=== PATIENT | male | born 1965 | race Caucasian/White ===

== ENCOUNTER 2018-06-11 10:43 | Outpatient (CLI) | payer MEDICAID, SELFPAY ==
[2018-06-11 12:16] LABS: Microalb ug/mg Crea 5.9 ug/mg Cr
[2018-06-11 12:17] LABS: ALT 28 U/L (12-78); AST 25 U/L (15-37); Albumin 3.6 g/dL (3.4-5.0); Alkaline Phosphatase 98 U/L (46-116); Anion Gap 11.2 mmol/L (3-11); BUN 14 mg/dL (7-18); Bilirubin, Total 0.7 mg/dL (0.2-1.0); CO2 25.8 mmol/L (21.0-32.0); CREATININE 0.92 mg/dL (0.70-1.30); Calcium 8.9 mg/dL (8.5-10.1); Chloride 103 mmol/L (98-107); Cholesterol 287 mg/dL (50-200); Glucose 134 mg/dL (70-100); HDL Cholesterol 33 mg/dL (40-60); LDL CHOLESTEROL 219 mg/dL (<100); Potassium 4.3 mmol/L (3.5-5.1); Sodium 140 mmol/L (136-145); Total Protein 6.7 g/dL (6.4-8.2); Triglyceride 154 mg/dL (30-150)
== END 2018-06-11 11:03 ==
PROVIDERS: PCP Family Medicine; Visit Provider Physician Assistant Medical
DX: E78.4 Other hyperlipidemia (principal); E11.9 Type 2 diabetes mellitus without complications; I10 Essential (primary) hypertension
CPT/HCPCS: 36415; 80053; 80061; 83721; 82043; 82570; 83036

== ENCOUNTER 2018-09-23 09:53 | Outpatient (CLI) | payer OTHER, SELFPAY ==
[2018-09-23 10:40] LABS: Hemoglobin A1C 6.1 % (4.5-6.2)
[2018-09-23 11:41] LABS: ALT 25 U/L (12-78); AST 17 U/L (15-37); Albumin 3.5 g/dL (3.4-5.0); Alkaline Phosphatase 126 U/L (46-116); Anion Gap 6.9 mmol/L (3-11); BUN 17 mg/dL (7-18); Bilirubin, Total 0.5 mg/dL (0.2-1.0); CO2 26.1 mmol/L (21.0-32.0); CREATININE 1.01 mg/dL (0.70-1.30); Chloride 104 mmol/L (98-107); Cholesterol 265 mg/dL (50-200); Glucose 123 mg/dL (70-100); HDL Cholesterol 45 mg/dL (40-60); LDL CHOLESTEROL 201 mg/dL (<100); Potassium 4.5 mmol/L (3.5-5.1); Sodium 137 mmol/L (136-145); Total Protein 6.7 g/dL (6.4-8.2); Triglyceride 134 mg/dL (30-150)
== END 2018-09-23 10:13 ==
PROVIDERS: PCP Family Medicine; Visit Provider Physician Assistant Medical
DX: E78.49 Other hyperlipidemia (principal); I10 Essential (primary) hypertension; E11.9 Type 2 diabetes mellitus without complications
CPT/HCPCS: 36415; 80053; 80061; 83721; 83036

== ENCOUNTER 2021-12-20 04:16 | Outpatient (CLI) | payer OTHER, SELFPAY ==
[2021-12-20 08:23] LABS: ALT 46 U/L (16-63); AST 30 U/L (15-37); Albumin 3.4 g/dL (3.4-5.0); Alkaline Phosphatase 99 U/L (46-116); Anion Gap 7.2 mmol/L (3-11); BUN 13 mg/dL (7-18); Bilirubin, Total 0.7 mg/dL (0.2-1.0); CO2 27.8 mmol/L (21.0-32.0); CREATININE 0.9 mg/dL (0.70-1.30); Calcium 8.2 mg/dL (8.5-10.1); Calculated LDL 168 mg/dL (<100); Chloride 103 mmol/L (98-107); Cholesterol 260 mg/dL (<200); Glucose 142 mg/dL (74-106); HDL Cholesterol 34 mg/dL (40-60); Potassium 4.6 mmol/L (3.5-5.1); Sodium 138 mmol/L (136-145); Total Protein 6.5 g/dL (6.4-8.2); Triglyceride 294 mg/dL (<150)
== END 2021-12-20 04:17 | disposition home or self-care (01) ==
LOC: LBO 04:17
PROVIDERS: PCP Family Medicine; Visit Provider Family Medicine
DX: E11.9 Type 2 diabetes mellitus without complications (principal); E78.5 Hyperlipidemia, unspecified
CPT/HCPCS: 36415; 80053; 80061

== ENCOUNTER 2023-02-02 01:30 | Outpatient (CLI) | payer OTHER, SELFPAY ==
--- NOTE | 2023-02-02 07:15 | DI.RAD_ITS ---
Exam(s) XR SHOULDER LT COMPLETE 2+V EXAM: XR SHOULDER LT COMPLETE 2+V CLINICAL HISTORY: Chronic lt shoulder pain, ? arthritis, m25.512. TECHNIQUE: 2D digital imaging was performed of the left shoulder. Six images were obtained. AP, Gr ashey, Y-view and axillary views were obtained. COMPARISON: No exams were available for comparison FINDINGS: BONES: No acute fracture is present. No bony destructive lesion is seen. JOINTS: No dislocation present. There are degenerative changes seen at the glenohumeral joint charact erized by joint space narrowing and periarticular spurring in the humeral head. The acromioclavicula r joint is well maintained. SOFT TISSUE: Normal. IMPRESSION: Degenerative changes seen at the glenohumeral joint. DATA REPOSITORY: RADIATION DOSE DELIVERED:
== END 2023-02-02 01:50 ==
LOC: DI 01:30
PROVIDERS: PCP Family Medicine; Visit Provider Family Medicine
DX: M19.012 Primary osteoarthritis, left shoulder (principal)
CPT/HCPCS: 73030

== ENCOUNTER 2023-04-19 02:51 | Outpatient (CLI) | payer OTHER, SELFPAY ==
--- NOTE | 2023-04-19 08:00 | DI.MRI_ITS ---
Exam(s) MR UPPER JOINT LT WO EXAM: MR UPPER JOINT LT WO CLINICAL HISTORY: L SHOULDER PAIN, lt rotator cuff tear, M75.102. TECHNIQUE: Multiplanar multisequence MRI was performed. COMPARISON: None. FINDINGS: BONES: There is no fracture or contusion pattern. There are degenerative changes in the posterior inf erior glenoid. Degenerative cysts are noted near the greater tuberosity. JOINTS:The acromioclavicular joint shows some inferior spurring and small amount of fluid. The gleno humeral joint is normal. TENDONS: Supraspinatus: Unremarkable. Infraspinatus: Unremarkable. Subscapularis: Unremarkable. Teres Minor: Unremarkable. Biceps and Mousie: Biceps tendon and anchor appear intact. There is fluid in the biceps tendon sheat h and 2 small loose bodies within the fluid at the level of the upper humeral shaft. MUSCLES: Unremarkable. GLENOID LABRUM: Tear of the anterior superior labrum versus prominent sulcus.. SOFT TISSUES: Unremarkable. OTHER: Subacromial and subdeltoid bursae show no fluid. Minimal fluid in the subcoracoid bursa.. IMPRESSION: Tear of the anterior superior labrum versus a prominent sulcus. Biceps tenosynovitis with 2 small loose bodies. No rotator cuff tear. Degenerative changes of the posterior inferior glenoid. DATA REPOSITORY:
== END 2023-04-19 03:11 ==
LOC: DI 02:51
PROVIDERS: PCP Family Medicine; Visit Provider Student in an Organized Health Care Education/Training Program
DX: S43.431A Superior glenoid labrum lesion of right shoulder, initial encounter; X58.XXXA Exposure to other specified factors, initial encounter
CPT/HCPCS: 73221

== ENCOUNTER → 2023-05-03 02:26 | Outpatient (CLI) | payer OTHER, SELFPAY ==
--- NOTE | 2023-05-03 08:15 | DI.RAD_ITS ---
Exam(s) RF JOINT INJECTION FLUORO GUID EXAM: RF JOINT INJECTION FLUORO GUID CLINICAL HISTORY: L SHOULDER INJ UNDER FLUORO,arthritis, m19.012 TECHNIQUE: Fluoroscopic guided left shoulder steroid injection therapy CONTRAST MATERIAL: Intra-articular COMPARISON: Relevant prior exams reviewed FINDINGS: Patient was consented prior to this procedure. Using sterile technique and adequate skin-subcutaneous anesthesia, fluoroscopic guidance was used to advance a 22 gauge spinal needle into the glenohumeral joint via an anterior approach. Intraarticula r position was confirmed with intra-articular contrast injection. Thereafter a sterile solution of 80 milligrams Depo-Medrol and 3 cc bipivocaine was injected into the joint space. Patient tolerated the procedure well and there were no intra procedure complications Cumulative Dose: Ka,r=3.19 mGy IMPRESSION: Left glenohumeral joint therapeutic steroid injection using fluoroscopic guidance. RADIATION DOSE DELIVERED:
[2023-05-03] MEDS: methylPREDNISolone ACETATE 80 MG/ML VIAL IM (15:04)
[2023-05-03] MEDS: Bupivacaine 0.5% Pres-Free 10 ML VIAL 5 ML IJ (15:05)
[2023-05-03] MEDS: Omnipaque 300 MG/ML 10 ML BTL IJ (15:05)
== END ==
PROVIDERS: PCP Family Medicine; Visit Provider Student in an Organized Health Care Education/Training Program
DX: M19.012 Primary osteoarthritis, left shoulder (principal)
CPT/HCPCS: 20610; 77002; J1040

== ENCOUNTER 2023-07-09 01:26 | Outpatient (CLI) | payer OTHER, SELFPAY ==
--- NOTE | 2023-07-09 06:45 | DI.RAD_ITS ---
Exam(s) XR KNEE RT 3V AP,LAT,BOGDAN EXAM: XR KNEE RT 3V AP,LAT,BOGDAN CLINICAL HISTORY: assess bony alignment,rt knee pain, m25.561. TECHNIQUE: 2D digital imaging was performed. COMPARISON: No exams were available for comparison FINDINGS: 3 views No evidence of acute fracture nor joint effusion. Bone density normal. No osseous lesions. No join t space narrowing. No osteophytes. IMPRESSION: No significant osseous findings. DATA REPOSITORY: RADIATION DOSE DELIVERED:
== END 2023-07-09 01:46 ==
LOC: DI 01:26
PROVIDERS: PCP Family Medicine; Visit Provider Nurse Practitioner Adult Health
DX: M25.561 Pain in right knee (principal)
CPT/HCPCS: 73562

== ENCOUNTER → 2023-08-08 01:56 | Outpatient (CLI) | payer OTHER, SELFPAY ==
--- NOTE | 2023-08-08 08:15 | DI.MRI_ITS ---
Exam(s) MR BRAIN WO EXAM: MR BRAIN WO CLINICAL HISTORY: acute R knee numbness; ?stroke,R20.0 TECHNIQUE: Multiplanar multisequence MRI of the brain was performed. COMPARISON: No exams were available for comparison FINDINGS: VENTRICLES AND EXTRA AXIAL SPACES: Normal in size and morphology for the patient's age. MIDLINE SHIFT: None. CEREBRAL PARENCHYMA: No focus of restricted diffusion to suggest acute infarct. No space-occupying le ju identified. No significant atrophy. No abnormal high signal lesions in the white matter. HEMORRHAGE: None. BRAINSTEM/CEREBELLUM: Normal. VISUALIZED PARANASAL SINUSES/MASTOIDS:Opacification of the right maxillary sinus. Vasculature: Normal flow void. PITUITARY GLAND: Unremarkable. ORBITS: Unremarkable. IMPRESSION: Unremarkable MRI of the brain. Opacification of the right maxillary sinus. DATA REPOSITORY:
== END ==
PROVIDERS: PCP Family Medicine; Visit Provider Psychiatry & Neurology Neurology
DX: R20.0 Anesthesia of skin (principal)
CPT/HCPCS: 70551

== ENCOUNTER 2024-11-23 11:24 | Emergency (ER) | payer OTHER, SELFPAY ==
[2024-11-23 11:27] VITALS: BP 178/87; PULSE 82; RESP 18; TEMP 36.6; O2SAT 98
--- NOTE | 2024-11-23 11:45 | RT.EKG_ITS ---
APPROVED REPORT Exam: Resting ECG Reason for Exam: Chest Pain Patient Location: E HR:70 bpm ECG Measurements Heart Rate 70 AXIS WV 180 P 11 QRSd 89 QRS -22 QT 370 T 4 QTc 400 Conclusion Sinus rhythm, rate 70 No interval abnormalities No STEMI Q wave and T wave inversion lead III No priors available for comparison
--- NOTE | 2024-11-23 11:45 | DI.CT_ITS ---
Exam(s) CT ABDOMEN PELVIS W EXAM: CT ABDOMEN PELVIS W CLINICAL HISTORY: epigastric pain. TECHNIQUE: Imaging Protocol: Axial computed tomography images with coronal and sagittal reformatted images were created and reviewed CONTRAST MATERIAL: Intravenous: Omnipaque-350 100cc Oral: None COMPARISON: No exams were available for comparison FINDINGS: VISUALIZED LUNG BASES: No nodules nor pleural effusions evident. Visualized lower mediastinum appear s unremarkable. There is no hiatal hernia evident. ABDOMEN: There is no ascites. There is no free intraperitoneal air. LIVER: Mildly hypodense implying steatosis but there are no discrete focal hepatic lesions. No dilat ed intrahepatic ducts. GALLBLADDER/BILIARY: No obvious acute gallbladder pathology. No radiopaque calculi evident. No gall bladder distension. CBD is not dilated. PANCREAS: No evidence of pancreatic mass nor dilatation of the pancreatic duct. No obvious evidence pancreatitis. SPLEEN: Spleen is not enlarged. No obvious intrasplenic lesions. Splenic and portal veins are paten t. ADRENALS: There are no significant adrenal masses. KIDNEYS:No cysts evident. No solid renal masses. No calculi nor hydronephrosis.. ABDOMINAL AORTA: Calcified but not enlarged. Celiac and superior mesenteric arteries are patent with no significant stenosis. Inferior mesenteric artery is also patent. No aneurysms evident in the ab dominal aorta LYMPH NODES:There is no retroperitoneal nor paraaortic adenopathy. ABDOMINAL WALL: No evidence of significant anterior abdominal wall nor inguinal hernia. GI: Stomach is not distended. No perigastric streaking. However, the mid-distal aspect of the duode num is fluid-filled and slightly dilated as is the duodenum at and slightly distal to the ligament of Treitz. However, left upper quadrant jejunal loops appear unremarkable and there is no evidence of small-bowel obstruction. The right-side of the colon and transverse colon are fluid-filled but without an obvious colitis danielle helio. Distal half of the colon appears unremarkable. PELVIS: GI: No evidence of appendicitis.There is no significant sigmoid diverticular disease. LYMPH NODES: There is no intrapelvic nor inguinal adenopathy. REPRODUCTIVE: There is some calcifications in the nonenlarged prostate. Seminal vesicles unremarkabl e. URINARY BLADDER: Collapsed. Pelvic ureters are not dilated. OSSEOUS: No fractures and no significant osseous lesions. There are bilateral pars defects at L5 and there is significant anterolisthesis of L5 upon S1 with ap proximately 1.5 cm anterior slippage of L5 upon S1 and significant disc space narrowing at L5-S1 leve l. Bilateral foraminal stenosis evident at this level (L5-S1). IMPRESSION: 1. Minimally prominent diameter and fluid-filled mid-distal duodenum. There is also some fluid in th e right-side of the colon and most of the transverse colon. There is, however, no evidence of bowel obstruction, free air, nor abscess. Stomach NG junction appear unremarkable. Also no evidence of ap pendicitis nor diverticulitis. RADIATION DOSE DELIVERED: 948.86mGy.cm Total DLP DATA REPOSITORY: All CT scans at this facility are submitted to the National Radiology Data Registry (NRDR) Dose Index Registry (DIR) with the [employer] (A[employer]). RADIATION OPTIMIZATION: All CT scans at this facility use at least one of these dose optimization te chniques: automated exposure control; mA and/or kV adjustment per patient size (includes targeted exa ms where dose is matched to clinical indication); or iterative reconstruction.
--- NOTE | 2024-11-23 11:50 | DI.RAD_ITS ---
Exam(s) XR CHEST 2V PA LATERAL EXAM: XR CHEST 2V PA LATERAL CLINICAL HISTORY: epigastric pain. TECHNIQUE: 2D digital imaging was performed. COMPARISON: No exams were available for comparison FINDINGS: 2 views: Heart size is normal. The mediastinum is not widened. There are increased lung markings in both lung honeycutt but no confluent infiltrates nor pleural effusi ons. No evidence of pulmonary edema. No pneumothorax. No fractures evident. IMPRESSION: Increased lung markings bilaterally but no acute infiltrates nor pleural effusions. DATA REPOSITORY: RADIATION DOSE DELIVERED:
[2024-11-23 12:18] LABS: Abs Immature Grans 0.03 10^3/uL (0.0-0.06); Absolute Basophil Count 0.05 10^3/uL (0.0-0.2); Absolute Eosinophil Count 0.79 10^3/uL (0.0-0.7); Absolute Lymphocyte Count 3.33 10^3/uL (1.2-3.4); Absolute Monocyte Count 0.62 10^3/uL (0.1-0.8); Basophils % 0.5 %; Eosinophils % 7.2 %; HCT 44.3 % (40.0-50.0); HGB 15.7 g/dL (13.5-17.5); Immature Grans % 0.3 %; Lymphocytes % 30.5 %; MCH 31.7 pg (27.0-33.0); MCHC 35.4 % (32.0-36.0); MCV 90 fL (80-95); MPV 9.9 fL (8.0-11.0); Monocytes % 5.7 %; Neutrophils % 55.8 %; Platelet Count 247 10^3/uL (130-400); RBC 4.95 10^6/uL (4.36-5.78); RDW 12.1 % (11.8-14.1); RDW-SD 39.7 fL; WBC 10.93 10^3/uL (4.4-10.8)
[2024-11-23 12:20] LABS: BE (Venous) -3 mmol/L (-2-3); HCO3 (Venous) 22 mmol/L (23-28); O2 Sat (Venous) 91 %; TCO2 (Venous) 23 mmol/L (24-29); pCO2 (Venous) 36 mmHg (41-51); pH (Venous) 7.39 (7.31-7.41); pO2 (Venous) 62 mmHg
[2024-11-23 12:41] LABS: Bilirubin Negative (Negative); Blood Negative (Negative); Clarity Clear (Clear); Glucose 500 mg/dL (Negative); Ketones Negative (Negative); Leukocyte Esterase Negative (Negative); Nitrite Negative (Negative); Specific Gravity >= 1.030 (1.005-1.025); Urobilinogen 0.2 mg/dL (Up to 0.2); pH 5.5 (5-8)
[2024-11-23 12:44] LABS: ALT 30 U/L (16-63); AST 17 U/L (15-37); Albumin 3.9 g/dL (3.4-5.0); Alkaline Phosphatase 112 U/L (46-116); Anion Gap 11.6 mmol/L (3-11); BUN 14 mg/dL (7-18); Bilirubin, Total 0.8 mg/dL (0.2-1.0); CO2 26.4 mmol/L (21.0-32.0); CREATININE 0.9 mg/dL (0.70-1.30); Calcium 9.3 mg/dL (8.5-10.1); Chloride 98 mmol/L (98-107); Estimated GFR 99.62 (mL/min/1.73m2); Glucose 246 mg/dL (74-106); Lipase 17 U/L (<78); Potassium 4.2 mmol/L (3.5-5.1); Sodium 136 mmol/L (136-145); Total Protein 7.5 g/dL (6.4-8.2); Troponin I 6 ng/L (<or=76)
[2024-11-23] MEDS: Normal Saline - Diluent 50 ML VIAL IJ (13:15)
[2024-11-23] MEDS: Omnipaque 350 MG/ML 100 ML BTL IJ (13:16)
[2024-11-23 13:21] LABS: Troponin I 5 ng/L (<or=76)
--- NOTE | 2024-11-23 13:38 | DI.VRAD_ITS ---
PROCEDURE INFORMATION: Exam: CT Abdomen And Pelvis With Contrast Exam date and time: 11/23/2024 1:06 PM Age: 58 years old Clinical indication: Other: Epigastric pain TECHNIQUE: Imaging protocol: Computed tomography of the abdomen and pelvis with contrast. Radiation optimization: All CT scans at this facility use at least one of these dose optimization techniques: automated exposure control; mA and/or kV adjustment per patient size (includes targeted exams where dose is matched to clinical indication); or iterative reconstruction. Contrast material: OMNI 350; Contrast volume: 100 ml; Contrast route: INTRAVENOUS (IV); COMPARISON: CT CHEST LUNG CANCER SCREEN 03/31/2024 8:13 AM FINDINGS: Liver: Normal. No mass. Gallbladder and biliary ducts: Normal. No calcified stones. No ductal dilation. Pancreas: Normal. No ductal dilation. Spleen: Normal. No splenomegaly. Adrenal glands: Normal. No mass. Kidneys and ureters: Normal. No hydronephrosis. Stomach and bowel: Unremarkable. No obstruction. No mucosal thickening. Appendix: No evidence of appendicitis. Intraperitoneal space: Unremarkable. No free air. No significant fluid collection. Vasculature: Calcified atheromas of the visualized arteries. Lymph nodes: Unremarkable. No enlarged lymph nodes. Urinary bladder: Unremarkable as visualized. Reproductive: The prostate gland demonstrates nonspecific parenchymal calcifications. Bones/joints: There are mild degenerative changes of the sacroiliac joints. Bilateral L5 pars defects with grade 2 spondylolisthesis of L5 over S1 secondary severe bilateral L5-S1 neural foraminal stenosis. There are mild degenerative changes of the hip joints. Soft tissues: Bilateral fat containing inguinal hernias. There is a fat-containing umbilical hernia. IMPRESSION: No acute intra-abdominal process. Dictated and Authenticated by: Shemar Demarco MD. Orderin Emily De León MD
--- NOTE | 2024-11-23 13:39 | DI.VRAD_ITS ---
PROCEDURE INFORMATION: Exam: XR Chest Exam date and time: 11/23/2024 1:19 PM Age: 58 years old Clinical indication: Other: Epigastric pain TECHNIQUE: Imaging protocol: Radiologic exam of the chest. Views: 2 views. COMPARISON: CT CHEST LUNG CANCER SCREEN 03/31/2024 8:13 AM FINDINGS: Lungs: Unremarkable. No consolidation. Pleural spaces: Bilateral apical pleural thickening. Heart/Mediastinum: Unremarkable. No cardiomegaly. Bones/joints: Unremarkable. IMPRESSION: No acute cardiopulmonary process. Dictated and Authenticated by: Shemar Demarco MD. Orderin Emily De León MD
[2024-11-23 14:18] VITALS: BP 151/95; PULSE 69; O2SAT 97
--- NOTE | 2024-11-23 14:19 | W.ED.GENAD ---
Discharge Plan Disposition Patient Disposition: Home Condition: Stable Discharge Details Clinical Impression: Gastritis Primary Care Provider: Sriram Morillo ED Provider: Genet Diaz Home Meds and New Rx's Prescriptions: New pantoprazole [Protonix] 20 mg tablet,delayed release (DR/EC) 20 mg PO DAILY Qty: 30 0RF sucralfate [Carafate] 1 gram tablet 1 g PO BID Qty: 60 0RF famotidine [Pepcid] 20 mg tablet 20 mg PO BID Qty: 60 0RF Continued Mounjaro 2.5 mg/0.5 mL pen injector 2.5 mg subcut QWEEK Qty: 2 0RF Rx Instructions: for 4 weeks amoxicillin-pot clavulanate 875-125 mg tablet 1 tab PO Q12H 10 Days Qty: 20 0RF escitalopram oxalate 10 mg tablet 10 mg PO DAILY Qty: 90 3RF glimepiride 1 mg tablet 1 mg PO DAILY Qty: 90 3RF lisinopril 10 mg tablet 10 mg PO DAILY Qty: 90 3RF rosuvastatin 10 mg tablet 10 mg PO DAILY Qty: 90 3RF nystatin 100,000 unit/gram powder 1 applic TP TID Qty: 60 3RF metformin 500 mg tablet extended release 24 hr 1,000 mg PO DAILY Qty: 180 3RF naproxen 500 mg tablet 500 mg PO BID Qty: 90 0RF Discharge Instructions Instructions: Gastritis (DC) Additional Instructions: Take Pepcid, Carafate, and omeprazole as prescribed, I suspect you may have gastritis and this may calm your stomach May take the Zofran as needed for nausea and vomiting [place] diet only try to stay away from cream, tomato, citrus based products Stay from any spicy foods I recommend staying away from juice as this has a lot of calories and may cause your blood sugars to elevate, your blood sugar today was 246 Please be reevaluated by your doctor next week and return earlier should you have new or worsening complaints Referrals: Sriram Morillo DO [Primary Care Provider] - 3 days HPI General Date/Time Provider Initiated Documentation: 11/23/24 11:40. HPI Narrative: The patient is a 58-year-old male with a history of hypertension, hyperlipidemia, and diabetes who presents with epigastric pain. He reports experiencing intermittent epigastric pain for the past several weeks, which radiates up to his chest. He does not endorse any fever but mentions feeling sweaty. He was previously on Augmentin for sinusitis following a flu-like illness. Related Data Home Medications ?Medication ?Instructions ?Recorded ?Confirmed escitalopram oxalate 10 mg tablet 10 mg PO DAILY #90 tabs 10/16/24 11/23/24 glimepiride 1 mg tablet 1 mg PO DAILY #90 tabs 10/16/24 11/23/24 lisinopril 10 mg tablet 10 mg PO DAILY #90 tabs 10/16/24 11/23/24 nystatin 100,000 unit/gram topical 1 applic topical TID #60 grams 10/16/24 11/23/24 powder rosuvastatin 10 mg tablet 10 mg PO DAILY #90 tabs 10/16/24 11/23/24 metformin 500 mg tablet,extended 1,000 mg (2 x 500 mg) PO DAILY 10/27/24 11/23/24 release 24 hr #180 tabs amoxicillin 875 mg-potassium 1 tab PO Q12H 10 days #20 tabs 11/17/24 11/23/24 clavulanate 125 mg tablet naproxen 500 mg tablet 500 mg PO BID #90 tabs 11/17/24 11/23/24 tirzepatide 2.5 mg/0.5 mL 2.5 mg (0.5 mL) subcut QWEEK #2 mL 11/17/24 11/23/24 subcutaneous pen injector (Mounjaro) famotidine 20 mg tablet (Pepcid) 20 mg PO BID #60 tabs 11/23/24 pantoprazole 20 mg tablet,delayed 20 mg PO DAILY #30 tabs 11/23/24 release (Protonix) sucralfate 1 gram tablet (Carafate) 1 g PO BID #60 tabs 11/23/24 Previous Rx's ?Medication ?Instructions ?Recorded escitalopram oxalate 10 mg tablet 10 mg PO DAILY #90 tabs 10/16/24 glimepiride 1 mg tablet 1 mg PO DAILY #90 tabs 10/16/24 lisinopril 10 mg tablet 10 mg PO DAILY #90 tabs 10/16/24 nystatin 100,000 unit/gram topical 1 applic topical TID #60 grams 10/16/24 powder rosuvastatin 10 mg tablet 10 mg PO DAILY #90 tabs 10/16/24 metformin 500 mg tablet,extended 1,000 mg (2 x 500 mg) PO DAILY 10/27/24 release 24 hr #180 tabs amoxicillin 875 mg-potassium 1 tab PO Q12H 10 days #20 tabs 11/17/24 clavulanate 125 mg tablet naproxen 500 mg tablet 500 mg PO BID #90 tabs 11/17/24 tirzepatide 2.5 mg/0.5 mL 2.5 mg (0.5 mL) subcut QWEEK #2 mL 11/17/24 subcutaneous pen injector (Mounjaro) famotidine 20 mg tablet (Pepcid) 20 mg PO BID #60 tabs 11/23/24 pantoprazole 20 mg tablet,delayed 20 mg PO DAILY #30 tabs 11/23/24 release (Protonix) sucralfate 1 gram tablet (Carafate) 1 g PO BID #60 tabs 11/23/24 Allergies Allergy/AdvReac Type Severity Reaction Status Date / Time No Known Allergies Allergy Verified 11/23/24 11:30 General Stated Complaint: Abd Prob LADARIUS: 3 Exam Narrative Exam Narrative: General Appearance: The patient is alert and oriented, not in any acute distress. Vital signs: Within normal limits. HEENT: Within normal limits. Respiratory: Lungs are clear to auscultation. Gastrointestinal: There is no reproducible tenderness in the abdomen. Extremities: Distal pulses in all four extremities are intact. Skin: Warm and dry, no rash. Neurological: Normal. Course Vital Signs Vital signs: Vital Signs Temperature 36.6 C 11/23/24 11:27 Pulse 82 11/23/24 11:27 Respiratory Rate 18 11/23/24 11:27 Blood Pressure 178/87 H 11/23/24 11:27 Pulse Oximetry 98 11/23/24 11:27 Temperature 36.6 C 11/23/24 11:27 Temperature Source Oral 11/23/24 11:27 Pulse 69 11/23/24 14:18 Respiratory Rate 18 11/23/24 11:27 Blood Pressure 151/95 H 11/23/24 14:18 Blood Pressure Position Sitting 11/23/24 11:27 Pulse Oximetry 97 11/23/24 14:18 Oxygen Delivery Method Room Air 11/23/24 11:27 Oxygen Flow Rate 0 11/23/24 11:27 Lab/Test Results Lab/Test Results: Laboratory Tests Range/Units 11/23/24 11/23/24 11/23/24 11:55 12:33 12:55 WBC (4.4-10.8) 10^3/uL 10.93 H RBC (4.36-5.78) 10^6/uL 4.95 Hgb (13.5-17.5) g/dL 15.7 Hct (40.0-50.0) % 44.3 MCV (80-95) fL 90 MCH (27.0-33.0) pg 31.7 MCHC (32.0-36.0) % 35.4 RDW (11.8-14.1) % 12.1 Plt Count (130-400) 10^3/uL 247 MPV (8.0-11.0) fL 9.9 Immature Gran % % 0.3 Neutrophils % % 55.8 Lymphocytes % % 30.5 Monocytes % % 5.7 Eosinophils % % 7.2 Basophils % % 0.5 Nucleated RBC % (0.0-0.3) % 0.0 Absolute Neutrophils (1.2-6.7) 10^3/uL 6.10 Absolute Lymphocytes (1.2-3.4) 10^3/uL 3.33 Absolute Monocytes (0.1-0.8) 10^3/uL 0.62 Absolute Eosinophils (0.0-0.7) 10^3/uL 0.79 H Absolute Basophils (0.0-0.2) 10^3/uL 0.05 VBG pH (7.31-7.41) 7.39 VBG pCO2 (41-51) mmHg 36 L VBG pO2 mmHg 62 VBG HCO3 (23-28) mmol/L 22 L VBG Total CO2 (24-29) mmol/L 23 L VBG O2 Saturation % 91 VBG Base Excess (-2-3) mmol/L -3 L Sodium (136-145) mmol/L 136 Potassium (3.5-5.1) mmol/L 4.2 Chloride (98-107) mmol/L 98 Carbon Dioxide (21.0-32.0) mmol/L 26.4 Anion Gap (3-11) mmol/L 11.6 H BUN (7-18) mg/dL 14 Creatinine (0.70-1.30) mg/dL 0.9 Est GFR (CKD-EPI 2020) (mL/min/1.73m2) 99.62 Glucose (74-106) mg/dL 246 H Calcium (8.5-10.1) mg/dL 9.3 Total Bilirubin (0.2-1.0) mg/dL 0.8 AST (15-37) U/L 17 ALT (16-63) U/L 30 Alkaline Phosphatase (46-116) U/L 112 Troponin I (<or=76) ng/L 6 5 Total Protein (6.4-8.2) g/dL 7.5 Albumin (3.4-5.0) g/dL 3.9 Lipase (<78) U/L 17 Urine Color (Yellow) Yellow Urine Clarity (Clear) Clear Urine pH (5-8) 5.5 Ur Specific [place] (1.005-1.025) >= 1.030 H Urine Protein (Neg-Trace) mg/dL Negative Urine Ketones (Negative) mg/dL Negative Urine Blood (Negative) Negative Urine Nitrite (Negative) Negative Urine Bilirubin (Negative) Negative Urine Urobilinogen (Up to 0.2) mg/dL 0.2 Ur Leukocyte Esterase (Negative) Negative Urine Glucose (Negative) mg/dL 500 H Medical Decision Making Laboratory Studies Glucose level is 246. Troponin negative with 5 days of symptoms, CBC within normal limits Imaging CT abdomen and pelvis does not show acute abnormality. Radiologist interpretation X-ray per radiology interpretation my review is negative for acute abnormality Initial Assessment: 58-year-old male with history of hypertension, hyperlipidemia, diabetes, presents with epigastric pain radiating to his chest for the past several weeks. Reports feeling sweaty but denies fever. Was taking Augmentin for sinusitis after a flu-like illness. ED Course: - Ordered CT abdomen and pelvis, EKG, CBC, CMP, troponin, lipase. - CT scan showed no acute abnormalities per radiology interpretation. - Glucose level elevated at 246. - Other labs normal. - Discussed refraining from juice consumption due to diabetes. - Recommended bland diet. - Prescribed Carafate, Pepcid, and omeprazole. - Return precautions reviewed and patient expressed understanding. Final Assessment: CT scan showed no acute abnormalities. Glucose level elevated at 246. Other labs normal. Advised to avoid juice, follow a bland diet, and prescribed Carafate, Pepcid, and omeprazole. Follow-up next week for recheck of blood glucose. Clinical Impression: - Epigastric pain Disposition: - Follow-Up: Recheck next week for blood glucose. MDM Components Evaluation: - Number of Differential Diagnoses or Management Options: Epigastric pain - Amount and Complexity of Data Reviewed: CT abdomen and pelvis, EKG, CBC, CMP, troponin, lipase - Risk of Complication and Morbidity or Mortality: Elevated glucose level, history of diabetes Quality:SDOH Health Related Social Needs: No Data to Display PFSH All Active Problems (Updated 11/23/24 @ 14:03 by CHLOE Buck) Gastritis (Acute) Chronic sinusitis (Acute) Circadian rhythm sleep disorder, shift work type (Acute) Right leg numbness (Acute) Peripheral neuropathy (Acute) Arthritis of left glenohumeral joint (Acute) Left rotator cuff tear (Acute) Glenohumeral arthritis (Acute) Depression (Chronic) Post-COVID chronic cough (Acute) Obesity (Chronic) Contact dermatitis (Acute) Per [facility] note from 03/18/22 Intertrigo (Acute) Insomnia (Acute) Post-traumatic osteoarthritis of ankle (Acute) GERD (gastroesophageal reflux disease) (Chronic) Tobacco use disorder (Acute) Dyslipidemia (Acute) Essential hypertension (Acute) Type 2 diabetes mellitus (Chronic) Medical History HTN (hypertension) Hyperlipidemia DM (diabetes mellitus) Surgical History History of eye surgery Right Eye Colonoscopy - MAC (12/19/17) Family History Mother Diabetes Father No problems noted. Sister No problems noted. Social History Smoking/Tobacco Use Status: Current every day Tobacco Type: cigarettes Tobacco: How many years used: 30 Smoking risk assessment performed?: Yes Alcohol Intake: current Alcohol Intake frequency: a few times a month Drug use: Never Substance use type: does not use Adopted: No Household members: spouse Housing: house Number of Children: 1 Communication Needs: Corrective Lenses Do you need help understanding health information?: Rarely current occupation: Configuration Management Specialist, [employer] Pets and animals: Yes Pets and animals: cat(s) Sexually active: Yes Do you think of yourself as: straight/heterosexual Current gender identity: male What is your relationship status?: How often do you attend faith or evangelical services?: decline to answer Panel score (0-1 are the most socially isolated patients): 1 What type of physical activity do you participate in: none and other Details: physically active dly Frequency: daily Seatbelt use: always Working smoke detector in home: Yes Fire extinguisher in home: Yes Carbon monox detector in home: Yes Do you feel safe at home: Yes Do you feel safe in your relationship?: Yes
--- NOTE | 2024-11-25 09:24 | NUR.NOTE ---
Patient EKG was performed after time change. It is 1 hour off. Nursing Note:
== END 2024-11-23 14:16 | disposition home or self-care (01) ==
PROVIDERS: Emergency Provider Physician Assistant; PCP Family Medicine
DX: K29.70 Gastritis, unspecified, without bleeding (principal); R11.0 Nausea; F17.210 Nicotine dependence, cigarettes, uncomplicated
CPT/HCPCS: 36415; 80053; 82805; 83690; 93005; 99285; 71046; 74177; 81003; 84484; 85025; 93010; 99284; J3490